=== PATIENT | male | born 1955 | race Caucasian/White ===

== ENCOUNTER → 2023-06-07 14:22 | Outpatient (REF) | payer MEDICARE, BC, SELFPAY | LOC: RAD 14:22 | PROVIDERS: ATTENDING PHYSICIAN Dermatology; FAMILY PHYSICIAN Family Medicine | DX: R06.00 Dyspnea, unspecified (principal) | CPT/HCPCS: 71046 ==

== ENCOUNTER → 2023-09-23 12:53 | Outpatient (REF) | payer MEDICARE, BC, SELFPAY | LOC: RCS 12:53 | PROVIDERS: ATTENDING PHYSICIAN Family Medicine | DX: R01.1 Cardiac murmur, unspecified (principal) | CPT/HCPCS: 93306 ==

== ENCOUNTER 2024-04-08 17:56 | Inpatient (IN) | payer MEDICARE, BC, SELFPAY ==
[2024-04-08] VITALS (14 sets, daily range): BP systolic 113–146; BP diastolic 54–103; BMI 28.1; BMI 27.3
[2024-04-08] MEDS: NSS 1000 IV ×2 (12:16→21:40)
[2024-04-08 12:27] LABS: Hematocrit 49.1 % (39.0-52.0); Hemoglobin 17.2 g/dL (13.0-18.0); Mean Corpuscular Hgb 32.3 pg (27.0-31.0); Mean Corpuscular Volume 92.1 fL (80.0-94.0); Mean Platelet Volume 11.3 fL (7.4-10.4); Platelet Count 170 10^3/uL (130-400); Red Blood Cell Count 5.33 10^6/uL (4.70-6.10); Red Cell Dist. Width 13.4 % (11.5-14.5); White Blood Cell Count 17.1 10^3/uL (4.8-10.8)
[2024-04-08 12:30] LABS: ALT (SGPT) 56 U/L (0-50); AST (SGOT) 57 U/L (17-59); Albumin 4.8 g/dl (3.5-5.0); Alkaline Phosphatase 90 U/L (38-126); Blood Urea Nitrogen 39 mg/dl (9-20); Carbon Dioxide 18 mmol/L (22-30); Chloride 103 mmol/L (98-107); Estimated Creatinine Clearance 54 ml/min; Glucose 147 mg/dl (70-99); Magnesium 1.8 mg/dl (1.6-2.3); Potassium 4.3 mmol/L (3.5-5.1); Sodium 137 mmol/L (135-145); Total Bilirubin 4.4 mg/dl (0.2-1.3); Total Protein 7.3 g/dl (6.3-8.2); eGFR 47.23
--- NOTE | 2024-04-08 12:35 | ED.GENMED ---
History of Present Illness
General
Chief Complaint: Abdominal Symptoms
Time Seen by Provider: 04/08/24 11:47
History of Present Illness
History of Present Illness:
Patient is a 68-year-old male with history of hypertension, hyperlipidemia, CLL on oral immunotherapy presenting to the emergency department with 1 day of nausea vomiting diarrhea. Patient states that he has had multiple episodes of nonbloody
vomiting and diarrhea. He feels extremely dehydrated. Occasionally will have lower abdominal pain. Denies any fevers or chills. No lightheadedness or dizziness. He denies any alcohol use but does state that he used to drink heavily. No drug
use. He denies any chest pain or shortness of breath. No problems with his heart rate in the past. No history of arrhythmia.
Past History
Past History
ED Past Medical History: None
ED Past Surgical History: None
Phy Exam
Physical Exam
Physical Exam:
GENERAL: in no acute distress
HEENT: normocephalic, extraocular movements intact, dry oral mucosa
NECK: normal inspection
RESPIRATORY: no respiratory distress, clear to auscultation bilaterally
CARDIOVASCULAR: Tachycardic rate in the 150s
ABDOMEN/: soft, non-distended, non-tender to palpation, no rebound or guarding
EXTREMITIES: non-tender, no edema/swelling
NEUROLOGIC: awake and alert, moves all extremities
SKIN: warm
Course
Orders/Labs/Results
Orders:
Orders
04/08/24
Electrocardiogram (*1) Stat
Reason for Study: Chest Pain
Comment: DONE NO ORDER ENTERED
04/08/24 11:35
EKG [Electrocardiogram (*1)] Urgent
Reason for Study: Tachycardia
EKG- Treatment ONCE
04/08/24 11:55
0.9% Sodium Chloride 1000 ml [Nss] 1,000 ml IV BOLUS
04/08/24 12:04
Complete Blood Count/With Diff Urgent
Comprehensive Metabolic Panel Urgent
Direct Bilirubin Urgent
Comment: ADD ON
Magnesium Urgent
04/08/24 12:33
Magnesium Sulfate 2 Gram/50 ml [Magnesium Sulfate] 2 gram in 50 ml IV NOW
04/08/24 12:34
Add On- LAB Urgent
Tests Added?: direct bilirubin
04/08/24 12:35
CT Abd/pelvis W Iv Cont Urgent
Comment:
Reason For Exam: llq abd pain
04/08/24 14:28
Urinalysis Reflex To Culture Urgent
Date Specimen was Collected: 04/08/24
Time Specimen was Collected: 13:55
Norovirus by PCR Urgent
MOIZ Source: Feces/Stool
Specimen Description:
Date Specimen was Collected: 04/08/24
Time Specimen was Collected: 14:02
Stool Culture Urgent
MOIZ Source: Feces/Stool
Specimen Description:
Date Specimen was Collected: 04/08/24
Time Specimen was Collected: 14:02
04/08/24 14:46
Diltiazem 125 mg/125 ml Nss [Cardizem] 125 mg in 125 ml IV NOW
Initial dose in mg/hr, then titrate:: 5
Titrate to keep:: Heart rate 80-100 bpm
Titrate by mg/hr:: 5 mg/hr
Frequency of titrations (minutes):: 15
Maximum dose in mg/hr:: 15
Diltiazem HCl [Cardizem] 15 mg IV NOW STA
Abnormal Lab Results
04/08/24 04/08/24
12:04 14:28
WBC 17.1 H 10^3/uL
(4.8-10.8)
MCH 32.3 H pg
(27.0-31.0)
MPV 11.3 H fL
(7.4-10.4)
Abs Immat Gran (auto) 0.1 H 10^3/uL
(0-0.05)
Absolute Neuts (auto) 9.6 H 10^3/uL
(1.4-6.5)
Absolute Lymphs (auto) 6.3 H 10^3/uL
(1.2-3.4)
Absolute Monos (auto) 1.0 H 10^3/uL
(0.1-0.6)
Carbon Dioxide 18 L mmol/L
(22-30)
BUN 39 H mg/dl
(9-20)
Creatinine 1.6 H mg/dL
(0.7-1.3)
Glucose 147 H mg/dl
(70-99)
Total Bilirubin 4.4 H mg/dl
(0.2-1.3)
Direct Bilirubin 0.8 H mg/dl
(0.0-0.4)
ALT 56 H U/L
(0-50)
Urine Ketones Trace A
(Negative)
Urine Bilirubin 1+ A
(Negative)
04/08/24 12:04
04/08/24 12:04
Vital Signs
Initial and Last Documented VS:
Initial Vital Signs
Temp Pulse Resp BP Pulse Ox
99.4 F 153 16 146/100 99
04/08/24 11:33 04/08/24 11:33 04/08/24 11:33 04/08/24 11:33 04/08/24 11:33
Last Documented Vital Signs
Temp Pulse Resp BP Pulse Ox
99.4 F 103 22 134/73 97
04/08/24 11:33 04/08/24 15:45 04/08/24 15:45 04/08/24 15:00 04/08/24 15:45
MDM/Problems Addressed
Differential Diagnosis Includes:
Patient is a 68-year-old man presenting to the emergency department 1 day nausea vomiting diarrhea. Vitals are notable for heart rate in the 150s. Per my interpretation the monitor he remains in the 150s but will go down to the 130s
intermittently. On exam he is dry. Concern for viral gastroenteritis. EKG obtained prior for evaluation per my interpretation is possible atrial flutter with a 2-1 block. Of note patient did have initial EKG that showed heart rate in the 150s
which appeared like atrial flutter however computer was reading as STEMI so I did repeat the EKG. During his evaluation patient continued to deny any chest pain or shortness of breath. My suspicion for ACS is extremely low given patient's clinical
symptoms. However he is receiving fluids and his heart rate does go down to the 130s intermittently could be sinus tach as patient is severely dehydrated. Will continue to give him IV fluids. Will give him magnesium as well. If his heart rate
does not respond to the fluids we will start him on diltiazem for atrial flutter with a 2-1 block. Blood work per my interpretation does show an acute kidney injury likely from dehydration. He does have leukocytosis. Will obtain CT scan with the
abdominal pain and leukocytosis. He also has elevated total bilirubin. Will add on direct bilirubin.
*Critical Care Note
Total Time (30-74mins, 75-104mins- exclusive of procedures): 45
comment:
Critical care statement: A total of 45 minutes of critical care time was provided for this patient. This includes management of unstable vital signs, evaluation of the patient at bedside, reviewing the patient's pertinent medical records, ordering
and reviewing studies, arranging urgent treatment with development of a management plan, evaluating patient's response to treatment, frequent reassessment, and discussion with consultants. This time was separate from time utilized to perform the
aforementioned documented procedures.
Update Note
Update Note:
Direct bilirubin is unremarkable. On reevaluation patient has received 2 L IV fluids as well as magnesium and heart rate remains in the 150s with an occasional decrease to the 130s. Decision was made to start diltiazem bolus and drip
On reevaluation he is on the drip at 10 and heart rate has decreased to the low 100s. Does appear that he is is in atrial fibrillation on the monitor per my interpretation. Patient will need admission for further monitoring and evaluation. CT
scan pending at this time.
ED Attending Note
-
Portions of this chart may have been created with voice recognition software.� Occasional wrong word or��sound alike� substitutions may have occurred due to the inherent limitations of voice recognition software.
Discharge Plan
Departure
Patient Disposition: Admit
Date of Disposition: 04/08/24
Time of Disposition: 16:09
Presentation/result/management discussed w/ accepting MD/DO: Hospitalist
Discharge Problem:
Atrial arrhythmia, Gastroenteritis
Prescriptions:
No Action
omeprazole 20 MG capsule,delayed release(DR/EC)
20 mg PO DAILY
metoprolol succinate 50 mg Capsule,Sprinkle,Er 24hr
50 mg PO DAILY
Saccharomyces boulardii [Florastor] 250 mg Capsule
500 mg PO DAILY
cholecalciferol (vitamin D3) [Vitamin D3] 50 mcg (2,000 unit) Tablet
50 mcg PO DAILY
atorvastatin 20 mg Tablet
20 mg PO DAILY
mupirocin 2 % ointment
1 applic intranasal BID Qty: 1 0RF
Rx Instructions:
Has previously.
docusate sodium 100 mg Capsule
100 mg PO BID Qty: 30 0RF
tamsulosin 0.4 mg Capsule
0.4 mg PO DAILY Qty: 7 0RF
Rx Instructions:
Take daily for 1 week for urinary retention prevention.
HOLD if systolic blood pressure <100.
lidocaine [Aspercreme (lidocaine)] 4 % Adhesive Patch,Medicated
2 patch topical DAILY Qty: 30 0RF
Rx Instructions:
Over the counter. 12 hours on, 12 hours off.
Apply to sides of L hip. DO NOT place over incision.
gabapentin 100 mg Capsule
200 mg PO TID Qty: 30 0RF
sennosides [senna] 8.6 mg Tablet
17.2 mg PO BID Qty: 30 0RF
oxycodone 5 mg tablet
10 mg PO Q6H PRN (Reason: severe pain) Qty: 26 0RF
Rx Instructions:
Home medication.
Take 2 tab every 6 hours as needed for severe pain (pain not controlled by Tramadol).
tramadol 50 mg tablet
50 mg PO Q6H PRN (Reason: mild-moderate pain) Qty: 35 0RF
Rx Instructions:
1 tab for mild pain, 2 if moderate pain.
Dx hip revision. Ongoing therapy.
aspirin 325 mg Tablet
325 mg PO DAILY Qty: 30 0RF
Rx Instructions:
Take daily x4 weeks for blood clot prevention.
amlodipine 5 mg Tablet
5 mg PO DAILY Qty: 1 0RF
Rx Instructions:
HOLD if systolic blood pressure <130 while on post-surgical narcotics.
acetaminophen [Tylenol Extra Strength] 500 mg tablet
1,000 mg PO Q6H Qty: 30 0RF
Rx Instructions:
DO NOT exceed >4000 mg daily.
lisinopril 10 mg Tablet
10 mg PO DAILY Qty: 1 0RF
Rx Instructions:
HOLD if systolic blood pressure <130 while on post-surgical narcotics.
cephalexin 500 mg capsule
500 mg PO BID Qty: 30 0RF
Rx Instructions:
Prescribed by Dr. Garcia.
Referrals:
Kalyan Amaya MD [Family Provider] -
Interventions
Interventions:
*Risk Screen - Suicide Last Done: 04/08/24 11:33
*General Assessment Last Done: 04/08/24 12:17
*Neglect/Abuse Screening Last Done: 04/08/24 11:33
ED- Fall Risk Assessment Last Done: 04/08/24 12:23
*ED COVID-19 Vaccine History Last Done: 04/08/24 12:17
GE-Obyjib-Zqokjdlsog Assessment Last Done: 04/08/24 12:23
Discharge Date and Time
Print Language: MAURITIAN
[2024-04-08 13:25] LABS: % Basophils 0.5 % (0-2); % Eosinophils 0.1 % (0-6); % Immature Granulocytes 0.4 % (0-0.5); % Lymphocytes 36.8 % (20.5-51.1); % Monocytes 5.8 % (1.7-9.3); % Neutrophils 56.4 % (42.2-75.2); Absolute Basophils 0.1 10^3/uL (0-0.2); Absolute Immature Granulocytes 0.1 10^3/uL (0-0.05); Absolute Lymphocytes 6.3 10^3/uL (1.2-3.4); Absolute Neutrophils 9.6 10^3/uL (1.4-6.5); Nucleated Red Blood Cells % 0 % (-)
[2024-04-08 13:29] LABS: Direct Bilirubin 0.8 mg/dl (0.0-0.4)
[2024-04-08] MEDS: MAGNESIUM SULFATE 50 IV (13:30)
[2024-04-08 14:43] LABS: Urine Albumin Trace (Neg - Trace); Urine Bilirubin 1+ (Negative); Urine Character Clear (Clear); Urine Color Yellow; Urine Glucose Negative (Negative); Urine Ketone Trace (Negative); Urine Leukocyte Negative (Negative); Urine Nitrite Negative (Negative); Urine Occult Blood Negative (Negative); Urine Specific Gravity 1.025 (<1.030); Urine Urobilinogen Negative (Neg - 1+)
[2024-04-08] MEDS: CARDIZEM 125 IV (14:57)
[2024-04-08] MEDS: CARDIZEM 15 MG IV (14:57)
--- NOTE | 2024-04-08 16:54 | HPS.HSE ---
Family Physician
-
Family Physician: Kalyan Amaya
Chief Complaint
-
vomiting/diarrhea
History of Present Illness
68-year-old male past medical history of hypertension, hyperlipidemia, CLL on oral immunotherapy, presenting with 1 day of multiple episodes of nausea and vomiting and watery diarrhea. He occasionally has lower abdominal pain. Denies fevers or
chills. Denies lightheadedness or dizziness. Denies alcohol use but used to drink heavily. Denies chest pain or shortness of breath.
He smokes 1 pack of cigarettes per day. He used to drink alcohol significantly in the past but no longer.
Medical History
Past Medical History
Past Medical History: Reports Other (hypertension, hyperlipidemia, CLL on oral immunotherapy)
Past Surgical History: Reports None
Social History
Tobacco: Smoker
Alcohol: Former
Drug: None
Family History
Family History: Not pertinent
Allergies / Home Medications
Allergies reflects when Allergies were last updated in [employer].
Home Medications with original date entered in [employer]
Allergy/Medication List:
Allergies
Allergy/AdvReac Type Severity Reaction Status Date / Time
No Known Allergies Allergy Verified 04/08/24 11:33
Home Medications
omeprazole 20 mg capsule,delayed release 20 mg PO DAILY 03/04/17
metoprolol succinate 50 mg capsule sprinkle, ext. release 24 hr 50 mg PO DAILY 03/12/22
Saccharomyces boulardii 250 mg capsule (Florastor) 500 mg PO DAILY 05/22/22
atorvastatin 20 mg tablet 20 mg PO DAILY 05/22/22
cholecalciferol (vitamin D3) 50 mcg (2,000 unit) tablet (Vitamin D3) 50 mcg PO DAILY 05/22/22
mupirocin 2 % topical ointment 1 applic intranasal BID #1 tube 05/22/22
acetaminophen 500 mg tablet (Tylenol Extra Strength) 1,000 mg (2 x 500 mg) PO Q6H #30 tabs 06/02/22
amlodipine 5 mg tablet 5 mg PO DAILY #1 tab 06/02/22
aspirin 325 mg tablet 325 mg PO DAILY #30 tabs 06/02/22
docusate sodium 100 mg capsule 100 mg PO BID #30 caps 06/02/22
gabapentin 100 mg capsule 200 mg (2 x 100 mg) PO TID #30 caps 06/02/22
lidocaine 4 % topical patch (Aspercreme (lidocaine)) 2 patch topical DAILY #30 ea 06/02/22
lisinopril 10 mg tablet 10 mg PO DAILY #1 tab 06/02/22
oxycodone 5 mg tablet 10 mg (2 x 5 mg) PO Q6H PRN severe pain #26 tabs 06/02/22
sennosides 8.6 mg tablet (senna) 17.2 mg (2 x 8.6 mg) PO BID #30 tabs 06/02/22
tamsulosin 0.4 mg capsule 0.4 mg PO DAILY #7 caps 06/02/22
tramadol 50 mg tablet 50 mg PO Q6H PRN mild-moderate pain #35 tabs 06/02/22
cephalexin 500 mg capsule 500 mg PO BID #30 caps 06/03/22
Review of Systems
-
History Source: Patient
A 12 point ROS was completed and negative except as noted: Yes
Constitutional: Reports No Symptoms
EENT: Reports No Symptoms
Respiratory: Reports No Symptoms
Cardiac: Reports No Symptoms
Abdomen/GI: Reports See HPI
: Reports No Symptoms
Musculoskeletal: Reports No Symptoms
Skin: Reports No Symptoms
Neurological: Reports No Symptoms
Endocrine: Reports No Symptoms
Hematologic/Lymphatic: Reports No Symptoms
Psych: Reports No Symptoms
Physical Exam
Vital Signs
Vital Signs
Temp Pulse Resp BP Pulse Ox
99.4 F 103 22 134/73 97
04/08/24 11:33 04/08/24 15:45 04/08/24 15:45 04/08/24 15:00 04/08/24 15:45
Physical Exam
General: Well Developed, Well Nourished and No Apparent Distress
HEENT: NormoCephalic, Moist mucous membranes and Atraumatic
Respiratory: Clear
Cardiac: S1/S2 and Regular Rhythm; No Murmur or Rub
GI: Soft, Non Tender, Non Distended and Normal Bowel Sounds; No Organomegaly
Rectal: Deferred by Provider
Musculoskeletal: No Clubbing, No Cyanosis and No Edema
Skin: No Rash
Neuro: Nonfocal/grossly intact
Laboratory Results
-
04/08/24 12:04
04/08/24 12:04
Laboratory Results
Total Bilirubin 4.4 mg/dl (0.2-1.3) H 04/08/24 12:04
AST 57 U/L (17-59) 04/08/24 12:04
ALT 56 U/L (0-50) H 04/08/24 12:04
Alkaline Phosphatase 90 U/L (38-126) 04/08/24 12:04
Data Reviewed
-
Lab Data: Labs Reviewed by me
Old Records: Reviewed
Impression/Plan
-
IMPRESSION:
PLAN:
# Acute viral gastroenteritis
-CT abdomen pelvis pending
-IV fluids
-Check stool culture, norovirus
-Zofran
-N.p.o. with sips of clears
# New onset atrial fibrillation with RVR
-[id number] score of 2
-Cardizem drip
-Start Eliquis
-Check echo
-Check TSH
-Cardiology consulted
# Acute kidney injury secondary to prerenal losses
-Creatinine 1.6
-IV fluids
-Hold lisinopril
History of CLL on oral immunotherapy
-On calquence
-Plan to start new treatment next month
Essential hypertension
-Hold lisinopril
Hyperlipidemia
-Continue statin
Active smoker
Former alcohol user
Full code
DVT prophylaxis�Eliquis
N.p.o.
[2024-04-08] MEDS: ELIQUIS 5 MG PO (18:52)
[2024-04-09] MEDS: CARDIZEM 125 IV ×2 (01:25→08:18)
[2024-04-09 03:12] VITALS: BP 127/74
[2024-04-09] MEDS: NSS 1000 IV ×3 (06:00→22:11)
[2024-04-09 06:20] LABS: % Basophils 0.7 % (0-2); % Eosinophils 0.9 % (0-6); % Immature Granulocytes 0.4 % (0-0.5); % Lymphocytes 30.6 % (20.5-51.1); % Monocytes 8.9 % (1.7-9.3); % Neutrophils 58.5 % (42.2-75.2); ALT (SGPT) 58 U/L (0-50); AST (SGOT) 60 U/L (17-59); Absolute Basophils 0.1 10^3/uL (0-0.2); Absolute Eosinophils 0.1 10^3/uL (0-0.7); Absolute Immature Granulocytes 0.1 10^3/uL (0-0.05); Absolute Lymphocytes 3.6 10^3/uL (1.2-3.4); Absolute Monocytes 1.1 10^3/uL (0.1-0.6); Absolute Neutrophils 6.9 10^3/uL (1.4-6.5); Albumin 3.8 g/dl (3.5-5.0); Alkaline Phosphatase 74 U/L (38-126); Blood Urea Nitrogen 33 mg/dl (9-20); Calcium 9.1 mg/dl (8.4-10.2); Carbon Dioxide 20 mmol/L (22-30); Chloride 108 mmol/L (98-107); Estimated Creatinine Clearance 62 ml/min; Glucose 107 mg/dl (70-99); Hematocrit 42.7 % (39.0-52.0); Hemoglobin 14.5 g/dL (13.0-18.0); Mean Corpuscular Hgb 32.1 pg (27.0-31.0); Mean Corpuscular Volume 94.5 fL (80.0-94.0); Nucleated Red Blood Cells % 0 % (-); Potassium 4.2 mmol/L (3.5-5.1); Red Blood Cell Count 4.52 10^6/uL (4.70-6.10); Red Cell Dist. Width 13.4 % (11.5-14.5); Sodium 137 mmol/L (135-145); Total Bilirubin 3.2 mg/dl (0.2-1.3); Total Protein 6.1 g/dl (6.3-8.2); White Blood Cell Count 11.7 10^3/uL (4.8-10.8); eGFR 55.43
[2024-04-09 06:47] LABS: TSH Reflex To Free T4 2.19 uIU/ml (0.47-4.68)
[2024-04-09 07:15] VITALS: BP 127/81
[2024-04-09 07:45] LABS: Lipase 70 U/L (23-300)
[2024-04-09] MEDS: LIPITOR 40 MG PO (07:49)
[2024-04-09] MEDS: ELIQUIS PO (07:52)
--- NOTE | 2024-04-09 08:25 | W.PN.HOSP.TC ---
Addendum entered and electronically signed by Tobi Cardenas MD 04/09/24 12:08:
#Mild thrombocytopenia - not consistent with HIT, also patient on Eliquis and did not receive heparin product
cont monitoring
Original Note:
Today's Communication/Plan
-
see PN
Assessment / Plan
Assessment / Plan
68yo M with PMHx of L hip prosthetic joint infection in 2021, CLL came with 24h of frequent wattery non-bloody stools, abdominal dyscomfort and nausea with vomiting, gradually subsided on the second day of admission. Found Enteritis on CT that
caused CHELA and new onset of Afib with RVR
#New onset Afib with RVR
most likely 2/2 dehydration
IVF
Rate control and bridge to oral cardizem (no Hx of CHF)
Cardio consult
Echo
Eliquis started (need cost by CM)
#CHELA
baseline CR 1.1
IVF and follow Cr
#Enteritis
#Non-bloody wattery diarrhea
#Nausea/vomiting
#Diverticulosis w/o diverticulitis
Norovirus neg
Stool Cx
pending
Antiemetics
Chck stool for c.diff
Advance diet as GI symptoms improved
Lipase WNL
#small b/l inguinal hernia
asymptomatic
monitor
#PAncreatic psudocyst
#Pancreatic cystic lesions with PMHx of pancreatitis
#1.5 cm exophytic mass arising off the posterior lower pole the left kidney
Kidney mass at the place of previous cyst
MRI abd/pelvis with/without contrast upon resolution of CHELA, most likely outpatient
#Hx of L hip prosthetic joint infection
#CLL
cont home meds when acute problem resolves
#Chronic indirect bilirubinemia
#Mild recurrent transaminitis
improving
monitor LFT
GI as outpatient
DVT ppx on Eliquis
Full code
I have spent at least 59min reviewing chart, test results, communication with patient and family and direct patient care
Anticipated Discharge: 24 - 48 hours
Subjective/Interval History
-
Date of Service: April 09, 2024
Objective Data
-
Labs:
Laboratory Results
04/09/24
05:27
WBC 11.7 H
Hgb 14.5
Hct 42.7
Plt Count Pending
Sodium 137
Potassium 4.2
Chloride 108 H
Carbon Dioxide 20 L
BUN 33 H
Creatinine 1.4 H
Glucose 107 H
Calcium 9.1
Total Bilirubin 3.2 H
AST 60 H
ALT 58 H
Alkaline Phosphatase 74
Vital Signs:
Vital Signs
Temp Pulse Resp BP Pulse Ox
98.4 F 78 18 127/81 97
04/09/24 07:15 04/09/24 07:15 04/09/24 07:15 04/09/24 07:15 04/09/24 07:15
I&O
04/08/24 04/09/24 04/10/24
06:59 06:59 06:59
Intake Total 1310 / 1310
Balance 1310 / 1310
Review of Systems
-
History Source: Patient
All other systems: Reviewed and negative
Abdomen/GI: Reports Diarrhea
Physical Exam
-
General: Well Developed, Well Nourished and No Apparent Distress
Cardiac: Irregular Rhythm; Negative Tachycardic
GI: Soft, Nontender and Nondistended
Neuro: Awake, Alert, Oriented and AO x 3
Psych: Calm
[2024-04-09] MEDS: CARDIZEM CD 180 MG PO (08:26)
[2024-04-09 08:40] LABS: Mean Platelet Volume 11.4 fL (7.4-10.4); Platelet Count 104 10^3/uL (130-400)
[2024-04-09] MEDS: NON-FORMULARY ITEM 100 MG PO (09:06)
--- NOTE | 2024-04-09 10:48 | PTCARENOTE ---
Patient cdiff and norovirus negative, placed on standard precautions. Cardizem gtt infusing at 10 ml/hr per MD order.
[2024-04-09 11:10] VITALS: BP 146/67
--- NOTE | 2024-04-09 11:16 | CM ---
CM met with pt bedside
Pt resides with his spouse in a 2SH with 3STE
Full flight to 2nd floor
Pt is indep without any ADs at baseline, drives+
Has a SPC, WW and crutches from prior injuries for use if needed
Denies financial insecurities
PCP- Kalyan Rich
Rx- [facility]
CM consult for Eliquis pricing 5Mg BID
Conference call with spouse who provided Rx plan info
Call to [facility] and closed on weekend
Will need to follow up on Wed for pricing
Dr Cardenas aware
Per spouse, pt has met out of pocket max and in rx catastrophic coverage through end of year
Will need to invest coverage come new year
[facility] Rx Plan ([phone] p)
ID# [id number]
Discharge Disposition- home, likely no needs, needs Eliquis pricing
[2024-04-09] MEDS: NICODERM TRANSDERMAL 21 MG TRANSDERM (14:21)
[2024-04-09 15:10] VITALS: BP 132/78
--- NOTE | 2024-04-09 16:16 | PTCARENOTE ---
HR in 70s aflutter on tele monitor; cardizem gtt put on hold per MD order, cardio made aware. Patient with B/L hand tremors, nicotine patch ordered per MD and applied to LUE. Patient NPO at midnight for ECHO and potential cardioversion in AM per
cardio. Patient with no concerns at this time, still with bouts of diarrhea but denies abdominal pain and nausea, tolerating low residue diet.
--- NOTE | 2024-04-09 17:01 | CON.CAR ---
Consultation
Consultation Request
Requesting Provider: Elle
Performing Provider: Krishan
Reason for Consultation: AFL
Medical History
-
Chief Complaint: N/V/D
History of Present Illness:
Patient is a 68-year-old male with a past medical history significant for hypertension, hyperlipidemia, CLL on oral immunotherapy, osteoarthritis with prior hip infection, pancreatic cyst, tobacco use disorder (1 pack/day), alcohol use disorder who
initially presented with abdominal discomfort nausea, vomiting, watery diarrhea. Patient found to be in atrial flutter likely typical. Initial heart rate elevated reporting palpitations. Following initiation of diltiazem, patient reported
improvement in symptoms and resolution of palpitations. Patient denies any chest pain, near-syncope, syncope, PND, orthopnea, edema, or weakness. He reported palpitations, nausea, vomiting, diarrhea, abdominal pain. No significant family history.
Social history as previously noted.
Past Medical History
Past Medical History: Other (See HPI)
Past Surgical History: Other (Joint surgery with infection)
Social History
Tobacco: Smoker
Alcohol: Other (Reported history of heavy alcohol use)
Drug: None
Personal:
Living: With Family
Family History
Family History: Reviewed & Not Pertinent
Allergies / Home Medications
Allergy/AdvReac Type Severity Reaction Status Date / Time
No Known Allergies Allergy Verified 04/08/24 11:33
�Medication �Instructions �Recorded �Confirmed �Type
Saccharomyces boulardii 250 mg 500 mg PO DAILY 05/22/22 04/08/24 History
capsule (Florastor)
cholecalciferol (vitamin D3) 50 50 mcg PO DAILY 05/22/22 04/08/24 History
mcg (2,000 unit) tablet (Vitamin
D3)
acalabrutinib 100 mg capsule 100 mg PO DAILY 04/08/24 04/08/24 History
(Calquence)
atorvastatin 40 mg tablet 40 mg PO DAILY 04/08/24 04/08/24 History
lisinopril 20 mg tablet 20 mg PO DAILY 04/08/24 04/08/24 History
Review of Systems
-
History Source: Patient and Family
All other systems: Negative unless noted
Constitutional: No Symptoms
EENT: No Symptoms
Respiratory: No Symptoms
Cardiac: Palpitations
Abdomen/GI: Abdominal Pain, Nausea, Vomiting and Diarrhea
: No Symptoms
Musculoskeletal: No Symptoms
Skin: No Symptoms
Neurological: No Symptoms
Endocrine: No Symptoms
Hematologic/Lymphatic: No Symptoms
Physical Exam
Vital Signs
Temp Pulse Resp BP Pulse Ox
98.2 F 75 18 132/78 98
04/09/24 15:10 04/09/24 15:10 04/09/24 15:10 04/09/24 15:10 04/09/24 15:10
Physical exam:
GENERAL: no acute distress
EYE: sclera anicteric
NECK: Supple, no JVD, no carotid bruit appreciated
ENT: normal nose, moist mucosal membranes
CARDIAC: Irregularly irregular, +S1/S2, no murmur, rubs, or gallops
CHEST/PULMONARY: Normal effort, clear breath sounds
ABDOMEN: Soft, without focal tenderness, obese, mild distention
NEUROLOGICAL: Alert and oriented x3
SKIN: Warm and dry, no rash
PSYCH: Normal and appropriate interaction.
Lab Results
04/09/24 05:27
04/09/24 05:27
Impression / Plan
-
PCP: Kalyan Amaya
Cardiology: Kalyan Salinas (last seen)
TTE 09/23/2023: Upper normal LV size, EF 55%, MAC, mild to moderate MR, aortic sclerosis without stenosis
.
Assessment:
Atrial flutter, variable AV block, symptomatic
� [id number]: 2 (hypertension, age). Started on Eliquis 5 mg twice daily for stroke risk reduction
� Rate control with diltiazem drip, oral diltiazem; plan to transition off drip and remain on oral
� No prior rate or rhythm control strategies
Acute viral gastroenteritis, improving
� Nausea, vomiting, diarrhea
� Associated dehydration
� Still reporting diarrhea, no reported nausea or vomiting at this time
CHELA, improving
Hypertension, stable
Dyslipidemia, on statin
CLL on immunotherapy
� Emerita comp review of medication,Calquence, reported possible <5% AF/AFL ADR
Pancreatic pseudocyst
History of pancreatitis
History of left prosthetic joint infection
Tobacco use disorder
History of alcohol use disorder
Plan:
� Eliquis 5 mg twice daily for stroke risk reduction in the setting of acute tachyarrhythmia. Patient's atrial flutter likely in the setting of acute viral gastroenteritis along with significant risk factors associated with AF/AFL
� N.p.o. after midnight for tentative MATEUS/DCCV for hoahaoism of sinus rhythm
� Wean Cardizem drip as tolerated ultimately plan for oral rate control strategy
� Continue to treat underlying illness including gastroenteritis, CHELA, dehydration
� Discussed at great length with patient importance of complete tobacco cessation
� Encouraged patient to remain off alcohol
� Replete electrolytes goal potassium greater than 4, magnesium greater than 2
� Discussed with patient, family, nursing
Data Reviewed
-
EKG: Tracing Personally Visualized and interpreted
Radiology: Report Reviewed by me
CT Scan: Report Reviewed by me
Medical Tests (Nuc Med, Echo etc): Report Reviewed by me
Labs: Labs Reviewed by me
Old Records: Reviewed
[2024-04-09 19:22] VITALS: BP 142/88
[2024-04-09] MEDS: ELIQUIS 5 MG PO (21:05)
[2024-04-09 23:20] VITALS: BP 130/64
[2024-04-10 03:22] VITALS: BP 125/74
[2024-04-10 07:20] VITALS: BP 147/102
--- NOTE | 2024-04-10 07:30 | PTCARENOTE ---
Patient's HR in 130s-140s aflutter on monitor this AM, patient states no concerns/complaints. This RN communicated with Dr. Nickerson of cardiology, stated to give PO 180 mg Cardizem as scheduled. Patient NPO for MATEUS and cardioversion this AM.
[2024-04-10] MEDS: CARDIZEM CD 180 MG PO (07:53)
[2024-04-10 07:54] LABS: % Basophils 0.9 % (0-2); % Eosinophils 1.7 % (0-6); % Immature Granulocytes 0.4 % (0-0.5); % Lymphocytes 33.7 % (20.5-51.1); % Monocytes 9.7 % (1.7-9.3); % Neutrophils 53.6 % (42.2-75.2); Absolute Basophils 0.1 10^3/uL (0-0.2); Absolute Eosinophils 0.1 10^3/uL (0-0.7); Absolute Lymphocytes 2.8 10^3/uL (1.2-3.4); Absolute Monocytes 0.8 10^3/uL (0.1-0.6); Absolute Neutrophils 4.5 10^3/uL (1.4-6.5); Hematocrit 41.2 % (39.0-52.0); Hemoglobin 13.8 g/dL (13.0-18.0); Mean Corp Hgb Conc. 33.5 g/dL (33.0-37.0); Mean Corpuscular Hgb 32.2 pg (27.0-31.0); Mean Platelet Volume 11.6 fL (7.4-10.4); Nucleated Red Blood Cells % 0 % (-); Platelet Count 98 10^3/uL (130-400); Red Blood Cell Count 4.29 10^6/uL (4.70-6.10); Red Cell Dist. Width 13.5 % (11.5-14.5); White Blood Cell Count 8.4 10^3/uL (4.8-10.8)
[2024-04-10] MEDS: NSS 1000 IV (07:54)
[2024-04-10] MEDS: NON-FORMULARY ITEM 100 MG PO (07:54)
[2024-04-10] MEDS: NICODERM TRANSDERMAL 21 MG TRANSDERM (07:54)
[2024-04-10] MEDS: LIPITOR 40 MG PO (07:54)
[2024-04-10] MEDS: ELIQUIS 5 MG PO (07:54)
[2024-04-10 08:20] LABS: ALT (SGPT) 62 U/L (0-50); AST (SGOT) 58 U/L (17-59); Albumin 3.7 g/dl (3.5-5.0); Alkaline Phosphatase 58 U/L (38-126); Blood Urea Nitrogen 24 mg/dl (9-20); Calcium 8.9 mg/dl (8.4-10.2); Carbon Dioxide 19 mmol/L (22-30); Chloride 111 mmol/L (98-107); Estimated Creatinine Clearance 72 ml/min; Glucose 102 mg/dl (70-99); Potassium 4.6 mmol/L (3.5-5.1); Sodium 138 mmol/L (135-145); Total Bilirubin 3.1 mg/dl (0.2-1.3); Total Protein 5.8 g/dl (6.3-8.2); eGFR > 60.00
--- NOTE | 2024-04-10 10:13 | CM ---
Reviewed the chart note. Received consult for cost of Eliquis 5mg bid. Per [facility], $0/month. Patient for tentative MATEUS/DCCV today. CM continues to be available to patient/family and is monitoring medical plan for needs at discharge.
Plan: Discharge to home with no anticipated needs.
--- NOTE | 2024-04-10 10:35 | W.PN.CARDCBS ---
Addendum entered and electronically signed by Stu Jones DO 04/11/24 17:35:
.
Impression:
Typical atrial flutter
Original Note:
Today's Communication / Plan
-
successful mateus/cv to sinus
Cont Eliquis and Cardizem
outpt cardiac follow up
Immunotherapy stopped as per hematology and primary service.
Impression / Plan
-
.
PCP: Kalyan Amaya
Cardiology: Kalyan Salinas, 20 yrs ago per pt
.
Impression:
Atrial flutter, variable AV block, symptomatic
Acute viral gastroenteritis, improving
CHELA, improving
Hypertension, stable
Dyslipidemia, on statin
CLL on immunotherapy, Calquence
Pancreatic pseudocyst
History of pancreatitis
History of left prosthetic joint infection
Tobacco use disorder
History of alcohol use disorder
TTE 09/23/2023: Upper normal LV size, EF 55%, MAC, mild to moderate MR, aortic sclerosis without stenosis
Plan:
Discussed MATEUS/cv and he was agreeable.
MATEUS: EF is preserved with mild to mod eccentric anteriorly directed jet
Cont Cardizem for rate control
Pt is being taken off Calquence as per his social science research assistant. Primary service discussed with hematology
Outpt follow up with Dr Krishan GORDON for PAFib.
Appreciate hospitalist input
Will update family
Progress Note - Precipitator Operator
Subjective
Date of Service: April 10, 2024
Pt seen and examined. No complaints. No chest pain or shortness of breath.
Objective
Labs:
04/10/24 07:21
04/10/24 07:21
Labs
Hgb 13.8 g/dL (13.0-18.0) 04/10/24 07:21
Hct 41.2 % (39.0-52.0) 04/10/24 07:21
Plt Count 98 10^3/uL (130-400) L 04/10/24 07:21
Sodium 138 mmol/L (135-145) 04/10/24 07:21
Potassium 4.6 mmol/L (3.5-5.1) 04/10/24 07:21
BUN 24 mg/dl (9-20) H 04/10/24 07:21
Creatinine 1.2 mg/dL (0.7-1.3) 04/10/24 07:21
Glucose 102 mg/dl (70-99) H 04/10/24 07:21
Vital Signs and I&O:
Vital Signs
Temp Pulse Resp BP Pulse Ox
98.5 F 147 16 147/102 96
04/10/24 07:20 04/10/24 07:53 04/10/24 07:20 04/10/24 07:53 04/10/24 08:29
Vital Signs
Temp Pulse Resp BP Pulse Ox
98.5 F 147 16 147/102 96
04/10/24 07:20 04/10/24 07:53 04/10/24 07:20 04/10/24 07:53 04/10/24 08:29
Intake & Output
04/08/24 04/09/24 04/10/24 04/11/24
06:59 06:59 06:59 06:59
Intake Total 1310 / 1310 4460 / 4460
Balance 1310 / 1310 4460 / 4460
Physical Exam
Physical Exam
General: No acute distress, AAOX3
Neck: Negative JVD
Heart: Irregularly irregular, Negative S3 positive S1/S2, Negative S4, No murmur
Lungs: CTA b/l, negative wheezes/rales/rhonchi
Abd: Positive BS, NT/ND, neg rebound/rigidity/guarding
Ext: Negative cyanosis/clubbing/edema
Neuro: nonfocal
--- NOTE | 2024-04-10 11:30 | PTCARENOTE ---
Patient to pathology lab technician for MATEUS/cardioversion.
--- NOTE | 2024-04-10 12:02 | W.PN.HOSP.TC ---
Today's Communication/Plan
-
MATEUS CV
Assessment / Plan
Assessment / Plan
68yo M with PMHx of L hip prosthetic joint infection in 2021, CLL came with 24h of frequent wattery non-bloody stools, abdominal dyscomfort and nausea with vomiting, gradually subsided on the second day of admission. Found Enteritis on CT that
caused CHELA and new onset of Afib with RVR
68-year-old male presented with abdominal discomfort nausea vomiting and watery diarrhea was found to have atrial flutter
CT abdomen and pelvis-enteritis involving the small bowel in the left lower abdomen and upper pelvis including mesenteric edema. Small amount of free fluid in the both upper quadrants adjacent to the liver and spleen. 2 small cystic focus within
the head of pancreas possible pseudocyst. Neoplasm also possible. MRI/MRCP advised.. 1.5 cm exophytic mass arising of the lower pole of the left kidney slightly larger than MRI of 2021. MRI recommended.
# Acute gastroenteritis-likely viral-likely norovirus even though viral testing is negative
Secondary dehydration from this
Patient is tolerating a diet had 3 meals yesterday. Diarrhea improved stool is softer now. No vomiting
# CHELA secondary to above-hold lisinopril. Creatinine better
# Atrial flutter with variable block-symptomatic
Continue Cardizem, Eliquis
TSH-normal
Cardiology consulted
For MATEUS cardioversion today-04/10/2024
# Elevated LFTs-likely secondary to viral infection-improving
# Thrombocytopenia-likely secondary to viral infection-needs to be followed as outpatient
# Hypertension-hold lisinopril
# Hyperlipidemia-continue statin
# CLL on immunotherapy on Calquence
# 1.5 cm exophytic mass arising from the lower pole of the left kidney-MRI as outpatient
# History of pancreatitis and pancreatic pseudocyst-again seen this admission. Patient needs to follow-up with Dr. Ellison as outpatient and also to get MRI/MRCP
# Smoldering myeloma-Per chart
# Ortega's esophagus/GERD / peptic ulcer disease-add PPI
# Diverticulosis
# Fatty liver
# History of C. difficile
# History of alcohol use disorder-not now
# Smoking-smoking cessation counseling
# DVT prophylaxis-Eliquis
# Full code
Discussed with nursing
Discussed with cardiology
Patient states that he is leaving the hospital regardless whether he is discharged or not
Anticipated Discharge: Within 24 hours
Subjective/Interval History
-
Date of Service: April 10, 2024
Objective Data
-
Labs:
Laboratory Results
04/10/24
07:21
WBC 8.4
Hgb 13.8
Hct 41.2
Plt Count 98 L
Sodium 138
Potassium 4.6
Chloride 111 H
Carbon Dioxide 19 L
BUN 24 H
Creatinine 1.2
Glucose 102 H
Calcium 8.9
Total Bilirubin 3.1 H
AST 58
ALT 62 H
Alkaline Phosphatase 58
Vital Signs:
Vital Signs
Temp Pulse Resp BP Pulse Ox
98.5 F 147 16 147/102 96
04/10/24 07:20 04/10/24 07:53 04/10/24 07:20 04/10/24 07:53 04/10/24 08:29
I&O
04/09/24 04/10/24 04/11/24
06:59 06:59 06:59
Intake Total 1310 / 1310 4460 / 4460
Balance 1310 / 1310 4460 / 4460
--- NOTE | 2024-04-10 12:10 | W.PN.UPDATE ---
Addendum entered and electronically signed by Can Snider MD 04/10/24 15:29:
Discussed with cardiology. Successful cardioversion. Patient can be discharged on Eliquis and Cardizem
Prescription for CBC given
Total discharge coordination time more than 35 minutes
Original Note:
Update Note
Progress Note Update
Called Dr Josh Lance ' office
Pt had concerns if he can take immunotherapy with Eliquis
Spoke to a nurse
Then to dr. Lance
He said it is Ok to stop Calquence and put pt on Eliquis
He will start another therapy in Apr.
His platelet count has not been an issue in the past.
Reviewed today's labs with him
Will cancel or hematology consult here
Patient updated re this. His has sent a message via portal as well.
Cardiology also updated
total time spent today over 55 min
--- NOTE | 2024-04-10 14:36 | CM ---
Reviewed the chart notes and spoke with the patient and his spouse at the bedside. IMM reviewed and placed on chart. CM continues to be available to patient/family and is monitoring medical plan for needs at discharge.
Plan: Discharge to home when medically stable. No additional needs identified at this time.
--- NOTE | 2024-04-10 15:32 | W.DS.TRANS ---
Addendum entered and electronically signed by Can Snider MD 04/11/24 08:01:
Dictation- [id number]
Original Note:
DC Summary - Glove Turner
-
Discharge Instructions:
Discharge Diagnosis/Procedures Atrial fibrillation
Dehydration
Acute kidney injury
Enteritis
Diverticulosis
Pancreatic pseudocyst
1.5 cm kidney mass
Thrombocytopenia ( low platelets)
Diet As tolerated
Activity As tolerated
Driving Restrictions As prior to admission
Blood Work CBC 2-3 days. Then in one month . Liver
function test in 1 month
Instructions:
Stand-Alone Forms:
Changes to Home Medications: Yes
Discharge Medications:
DC Medications w/original date entered in [email or web address]
Saccharomyces boulardii 250 mg capsule (Florastor) 500 mg (2 x 250 mg) PO DAILY Supplement #0 caps 04/10/24
apixaban 5 mg tablet (Eliquis) 5 mg PO BID Arrhythmia #60 tabs 04/10/24
atorvastatin 40 mg tablet 40 mg PO DAILY High cholesterol #0 tabs 04/10/24
cholecalciferol (vitamin D3) 50 mcg (2,000 unit) tablet (Vitamin D3) 50 mcg PO DAILY Supplement #0 tabs 04/10/24
diltiazem HCl 180 mg capsule,extended release 24 hr 180 mg PO DAILY Arrhythmia #30 caps 04/10/24
nicotine 21 mg/24 hr daily transdermal patch 21 mg transdermal DAILY Smoking cessation #0 ea 04/10/24
Home Medication Changes
Lisinopril and Calquence stopped
Nicotine, Cardizem and Eliquis are new
Pending Results: No
[2024-04-10 16:00] VITALS: BP 137/96
--- NOTE | 2024-04-10 16:23 | PTCARENOTE ---
Patient discharged home s/p cardioversion and MATEUS. This RN reviewed discharge instructions with patient and patient's spouse, both verbalized understanding. This RN provided patient back with home med bottle of Calquence, patient understands he is
to stop taking medication. IV and tele pack removed by this RN. Patient dressed and gathered belongings in room with assistance of spouse, taken home by spouse. Patient taken down to [facility] via staff escort and wheelchair.
--- NOTE | 2024-04-11 09:14 | PN.CDI ---
CDI
- -
CDI:
Physician Documentation Request
Admit Date: 04/08/24 17:56
Dear Cardiology,
Please review the following and provide your response in the progress notes.
Clinical Indicators:
- Patient admit with viral gastroenteritis and found in atrial flutter
- 04/10 Cardiology 'Atrial flutter, variable AV block, symptomatic'
- 04/08 EKG with atrial flutter - rate 296 bpm
- 04/10 MATEUS for atrial flutter with cardioversion performed
If possible, please provide further specificity regarding atrial flutter, such as:
Typical Atrial Flutter - Type I: Classic or common atrial flutter, Rate is 240-340 beats/min. Usually responds to atrial pacing.
Atypical Atrial Flutter - Type II: Less common and more unstable. Rate is 340-440 beats/min. Less responsive to atrial pacing.
Other - please specify
Use of terms such as suspected, likely, concern for, or probable (associated with a specific diagnosis that is being evaluated, monitored, or treated as if it exists) are acceptable and can be coded in the inpatient setting, when documented at the
time of discharge.
Thank you,
Candace Swift RN
CDI Specialist
Please use your independent medical judgment in providing your response.
== END 2024-04-10 16:33 | disposition home or self-care (01) | DRG 392 ==
LOC: 2 NORTH 17:56
PROVIDERS: Internal Medicine; Nuclear Medicine Nuclear Cardiology; ADMITTING PHYSICIAN Hospitalist; ATTENDING PHYSICIAN Hospitalist; CONSULT PHYSICIAN Internal Medicine Cardiovascular Disease; EMERGENCY PHYSICIAN Student in an Organized Health Care Education/Training Program; FAMILY PHYSICIAN Family Medicine
PROC: B24BZZ4 Ultrasonography of Heart with Aorta, Transesophageal (ICD-10-PCS; 2024-04-10)
PROC: 5A2204Z Restoration of Cardiac Rhythm, Single (ICD-10-PCS; 2024-04-10)
DX: A08.11 Acute gastroenteropathy due to Norwalk agent (principal); C91.10 Chronic lymphocytic leukemia of B-cell type not having achieved remission; N17.9 Acute kidney failure, unspecified; K86.3 Pseudocyst of pancreas; I48.3 Typical atrial flutter; I44.30 Unspecified atrioventricular block; E86.0 Dehydration; I10 Essential (primary) hypertension; E78.5 Hyperlipidemia, unspecified; Z79.69 Long term (current) use of other immunomodulators and immunosuppressants; F17.210 Nicotine dependence, cigarettes, uncomplicated; F10.11 Alcohol abuse, in remission; I34.0 Nonrheumatic mitral (valve) insufficiency; I25.10 Atherosclerotic heart disease of native coronary artery without angina pectoris; I48.91 Unspecified atrial fibrillation; Z79.899 Other long term (current) drug therapy; Z79.82 Long term (current) use of aspirin; N28.89 Other specified disorders of kidney and ureter; D69.59 Other secondary thrombocytopenia
CPT/HCPCS: 74177; 80053; 81003; 82248; 83690; 83735; 84443; 85025; 87045; 87046; 87324; 87427; 87449; 87798; 92960; 93005; 93312; 93320; 93325; 96361; 96365; 96366; 96367; 99291; Q9967

== ENCOUNTER → 2024-04-15 07:32 | Outpatient (REF) | payer MEDICARE, BC, SELFPAY ==
[2024-04-15 08:14] LABS: % Basophils 0.7 % (0-2); % Eosinophils 2.7 % (0-6); % Lymphocytes 28.6 % (20.5-51.1); % Monocytes 12.2 % (1.7-9.3); % Neutrophils 53.8 % (42.2-75.2); Absolute Basophils 0.1 10^3/uL (0-0.2); Absolute Eosinophils 0.3 10^3/uL (0-0.7); Absolute Immature Granulocytes 0.2 10^3/uL (0-0.05); Absolute Lymphocytes 2.9 10^3/uL (1.2-3.4); Absolute Monocytes 1.2 10^3/uL (0.1-0.6); Absolute Neutrophils 5.4 10^3/uL (1.4-6.5); Hematocrit 41.1 % (39.0-52.0); Hemoglobin 14.4 g/dL (13.0-18.0); Mean Corpuscular Hgb 32.5 pg (27.0-31.0); Mean Corpuscular Volume 92.8 fL (80.0-94.0); Mean Platelet Volume 11.8 fL (7.4-10.4); Nucleated Red Blood Cells % 0 % (-); Platelet Count 120 10^3/uL (130-400); Red Blood Cell Count 4.43 10^6/uL (4.70-6.10); Red Cell Dist. Width 13.5 % (11.5-14.5); White Blood Cell Count 10.1 10^3/uL (4.8-10.8)
== END ==
LOC: REG 07:32
PROVIDERS: ATTENDING PHYSICIAN Internal Medicine Cardiovascular Disease; FAMILY PHYSICIAN Family Medicine
DX: D69.6 Thrombocytopenia, unspecified (principal)
CPT/HCPCS: 36415; 85025

== ENCOUNTER → 2024-04-21 11:14 | Outpatient (REF) | payer MEDICARE, BC, SELFPAY | LOC: RAD 11:14 | PROVIDERS: ATTENDING PHYSICIAN Family Medicine | DX: Z87.891 Personal history of nicotine dependence (principal) | CPT/HCPCS: 71271 ==

== ENCOUNTER → 2024-05-16 12:42 | Outpatient (REF) | payer MEDICARE, BC, SELFPAY | LOC: PAVMRI 12:42 | PROVIDERS: ATTENDING PHYSICIAN Specialist; FAMILY PHYSICIAN Family Medicine | DX: K86.2 Cyst of pancreas (principal) | CPT/HCPCS: 74183; A9575 ==

== ENCOUNTER → 2024-06-26 09:03 | Outpatient (REF) | payer MEDICARE, BC, SELFPAY | LOC: RCS 09:03 | PROVIDERS: ATTENDING PHYSICIAN Internal Medicine Cardiovascular Disease; FAMILY PHYSICIAN Family Medicine | DX: I48.92 Unspecified atrial flutter (principal); R06.02 Shortness of breath | CPT/HCPCS: 93306 ==

== ENCOUNTER → 2024-08-07 12:55 | Outpatient (REF) | payer MEDICARE, BC, SELFPAY | LOC: DHSLP 12:55 | PROVIDERS: ATTENDING PHYSICIAN Internal Medicine Cardiovascular Disease | DX: G47.33 Obstructive sleep apnea (adult) (pediatric) (principal) | CPT/HCPCS: 95800 ==

== ENCOUNTER → 2024-09-11 08:40 | Outpatient (REF) | payer MEDICARE, BC, SELFPAY ==
[2024-09-11 10:00] LABS: % Basophils 1.3 % (0-2); % Lymphocytes 7.7 % (20.5-51.1); % Monocytes 13.8 % (1.7-9.3); % Neutrophils 75.2 % (42.2-75.2); Absolute Basophils 0.1 10^3/uL (0-0.2); Absolute Eosinophils 0.1 10^3/uL (0-0.7); Absolute Immature Granulocytes 0.1 10^3/uL (0-0.05); Absolute Lymphocytes 0.7 10^3/uL (1.2-3.4); Absolute Monocytes 1.2 10^3/uL (0.1-0.6); Absolute Neutrophils 6.6 10^3/uL (1.4-6.5); Hematocrit 48.1 % (39.0-52.0); Hemoglobin 16.2 g/dL (13.0-18.0); Mean Corp Hgb Conc. 33.7 g/dL (33.0-37.0); Mean Corpuscular Hgb 32.9 pg (27.0-31.0); Mean Corpuscular Volume 97.8 fL (80.0-94.0); Mean Platelet Volume 11.6 fL (7.4-10.4); Nucleated Red Blood Cells % 0 % (-); Platelet Count 175 10^3/uL (130-400); Red Blood Cell Count 4.92 10^6/uL (4.70-6.10); Red Cell Dist. Width 13.8 % (11.5-14.5); White Blood Cell Count 8.8 10^3/uL (4.8-10.8)
[2024-09-11 10:12] LABS: ALT (SGPT) 45 U/L (0-50); AST (SGOT) 41 U/L (17-59); Albumin 4.6 g/dl (3.5-5.0); Alkaline Phosphatase 82 U/L (38-126); Blood Urea Nitrogen 24 mg/dl (9-20); Calcium 9.9 mg/dl (8.4-10.2); Carbon Dioxide 22 mmol/L (22-30); Chloride 109 mmol/L (98-107); Glucose 113 mg/dl (70-99); Magnesium 2.1 mg/dl (1.6-2.3); Sodium 140 mmol/L (135-145); Total Bilirubin 1.9 mg/dl (0.2-1.3); Total Protein 7.1 g/dl (6.3-8.2); eGFR > 60.00
[2024-09-11 10:15] LABS: INR 1.12; PT 14.7 Sec (11.4-14.6)
== END ==
LOC: SDSPAT 08:40
PROVIDERS: ATTENDING PHYSICIAN Internal Medicine Cardiovascular Disease; FAMILY PHYSICIAN Family Medicine
DX: I48.91 Unspecified atrial fibrillation (principal)
CPT/HCPCS: 36415; 75572; 80053; 83735; 85025; 85610; 86850; 86900; 86901; 93005; Q9967

== ENCOUNTER 2024-09-27 06:02 | Day surgery (SDC) | payer MEDICARE, BC, SELFPAY ==
[2024-09-11 09:29] VITALS: BMI 28.7
--- NOTE | 2024-09-11 10:29 | HPS.HSE ---
Family Physician
-
Family Physician: NO INTERVIEW UNKNOWN
Chief Complaint
-
Paroxysmal atrial fibrillation and atrial flutter.
History of Present Illness
The patient is a 68 year old male presenting today for paroxysmal atrial fibrillation and atrial flutter. The patient reports symptoms such as disturbing palpitations, fatigue, and jitteriness all likely secondary to his atrial
arrhythmias. He previously underwent a MATEUS-guided cardioversion in March 2024. A recent event monitor revealed an overall 14% atrial fibrillation burden. He is currently rate controlled without the use of pharmacological therapy. He reports
compliance with Eliquis for oral anticoagulation due to a CHADS-VASc of 2. He notes that his symptoms associated with his atrial arrhythmias greatly interfere with his activities of daily living and overall impact his quality of life. He is
interested in pursuing pulmonary vein isolation and atrial flutter ablation for more definitive arrhythmia management. He denies complaints today such as chest pain, shortness of breath at rest, nausea, vomiting, diarrhea, lightheadedness,
dizziness, sore throat, or fever. He does report a recent upper respiratory infection for which he is finishing an antibiotic. He reports mild nasal congestion and an occasional productive cough of clear to white mucus; otherwise, his symptoms have
reportedly drastically improved.
Medical History
Past Medical History
Past Medical History: Reports Other
Additional Past Medical History:
1. Paroxysmal atrial fibrillation and atrial flutter, status post MATEUS-guided cardioversion 03/2024; pharmacological therapy with Metoprolol Succinate and oral anticoagulation with Eliquis.
2. Hypertension.
3. Hyperlipidemia.
4. Mild valvular disease.
5. Newly diagnosed obstructive sleep apnea, awaiting Pulmonary recommendations.
6. Pulmonary nodules.
7. GERD.
8. Ortega's esophagus.
9. Diverticulosis.
10. Left renal mass, 1.4 cm, likely cyst.
11. Pancreatic pseudocysts.
12. Hepatomegaly.
13. History of alcoholic hepatitis.
14. C diff. colitis 06/2016.
15. Osteoarthritis, status post left total hip arthroplasty, 12/2021.
16. Infection of left total hip prosthesis, status post 2-staged revision.
17. Chronic lymphocytic leukemia, on immunotherapy.
18. Chronic post-nasal drip.
19. Recent upper respiratory infection, improving with Cefuroxime.
20. Hyperbilirubinemia.
21. Current tobacco abuse.
22. History of alcohol abuse.
Past Surgical History: Reports Other
Additional Past Surgical History:
1. MATEUS-guided cardioversion.
1. Two-stage revision of left total hip arthroplasty.
2. Left total hip arthroplasty.
3. Knee arthroscopy.
4. Shoulder arthroscopy.
5. Hemorrhoidectomy.
Social History
Tobacco: Smoker (He is a current 1/2 pack per day cigarette smoker. He is taking active measures to cut back and hopefully quit tobacco altogether in the near future. )
Alcohol: Other (He reports 'occasional' beer and wine drinking; however, he does have a known history of hospitalization requiring ICU admission due to alcoholic withdrawal.)
Personal:
Family History
Family History: Other (The patient lives in a two-story home with his . )
Allergies / Home Medications
Allergy/Medication List:
Home medications:
1. Apixaban 5 mg p.o. twice a day.
2. Ascorbic acid 500 mg p.o. daily.
3. Acyclovir 400 mg p.o. twice a day.
4. Atorvastatin 20 mg p.o. daily.
5. Cholecalciferol 50 mcg p.o. daily.
6. Lisinopril 20 mg p.o. twice a day.
7. Metoprolol Succinate 100 mg p.o. daily.
8. Gazyva 1000 mg IV every 28 days.
9. Florastor 500 mg p.o. daily.
10. Cefuroxime 500 mg p.o. twice a day.
Allergies: No known allergies.
Review of Systems
-
A 12 point ROS was completed and negative except as noted: Yes
Physical Exam
Vital Signs
Blood pressure 126/81. Heart rate 73. Respirations 18. Pulse ox 98% on room air.
Height 6 feet, 2 inches. Weight 101.5 kg. BMI 28.7.
Physical Exam
General: Well Developed, Well Nourished and No Apparent Distress
HEENT: NormoCephalic, Moist mucous membranes, Atraumatic and PERRLA
Respiratory: Clear
Cardiac: Irregular Rhythm
GI: Soft, Non Tender and Non Distended
Musculoskeletal: No Edema and Normal Gait & Station
Skin: Warm and Dry
Neuro: AO x 3 and Nonfocal/grossly intact
Laboratory Results
-
DIAGNOSTIC STUDIES as of 09/11/2024: White blood cell count 8.8. Hemoglobin 16.2. Platelet count 175,000. PT 14.7. INR 1.12. Sodium 140. Potassium 5.0. BUN 24. Creatinine 1.1. Glucose 113. Calcium 9.9. Total bilirubin 1.9. Magnesium 2.1. AST 41. ALT
45. Albumin 4.6. Type and screen A negative.
EKG 09/11/2024: Atrial flutter with variable AV block. Cannot rule out inferior infarct, cited on or before 04/08/2024. Prolonged QT.
Chest CT 09/11/2024: Short segment common vestibule for the left superior and inferior pulmonary veins, fairly commonly seen and considered normal variant. No evidence for left atrial thrombus. Slightly improved subtle/small patchy subpleural
groundglass opacities in the bilateral lower lobes, likely reflecting a waxing/waning low-grade infectious/inflammatory process.
Echocardiogram 06/26/2024: Upper normal left ventricular size. Normal systolic function. No regional wall motion abnormalities are seen. LV ejection fraction is 50-55% by visual assessment. Mild concentric left ventricular hypertrophy. Normal
diastolic function. Normal right ventricular size and function. Dense posterior mitral annular calcification. Mild prolapse of the posterior mitral leaflet was present. Mild, eccentric mitral regurgitation. This may be underestimated due to
acoustic shadowing. Densely thickened non coronary cusp. Aortic sclerosis without stenosis. Trace tricuspid regurgitation. Estimated pulmonary artery pressure of 27 mmHg, assuming a right atrial pressure of 3 mmHg. Minimally increased aorta
measuring 3.8 cm at the sinotubular junction and in the ascending aorta. Aortic arch not well visualized.
Impression/Plan
-
IMPRESSION/PLAN:
1. Paroxysmal atrial fibrillation and atrial flutter: The patient is in need of pulmonary vein isolation and an atrial flutter ablation with Dr. Josse Nickerson on 09/27/2024. The benefits and risks of the procedure have been explained to the patient.
The patient understands these risks and wishes to proceed. He will not be required to undergo a pre-procedural transesophageal echocardiogram as he has been compliant with his home oral anticoagulation. He is aware to continue his Eliquis up until
the night prior to his procedure. He will take no medications the morning of his ablation.
2. Recent upper respiratory infection: The patient reportedly has 3 days left of his Cefuroxime; however, he is noting a significant improvement in his symptoms. He was advised to continue this medication until finished. He is aware to call his
surgeon's office should his symptoms return or worsen prior to his procedure date.
3. Current tobacco abuse: Smoking cessation education was provided to the patient. As stated previously, the patient is taking active measures to quit tobacco use altogether prior to his procedure. He was applauded for his efforts.
[2024-09-27] VITALS (12 sets, daily range): BP systolic 100–157; BP diastolic 64–94; BMI 28.5
--- NOTE | 2024-09-27 07:15 | ITS.CL.ABL ---
Aeronautical Inspector - Ablation
Ablation
Procedure Report:
Primary Care: Dr Kalyan Schneider
Procedure Date: 09/27/2024
Patient History:
Patient is a pleasant 68-year-old male with a past medical history significant for hypertension, hyperlipoidemia, GERD, pancreatic pseudocyst, tobacco use, alcohol use, CLL, atrial fibrillation, atrial flutter.
See H&P for complete details.
Indication:
Symptomatic paroxysmal atrial fibrillation
Symptomatic paroxysmal atrial flutter
Arrhythmia Specific History:
Prior Medical Therapies for Rate and Rhythm Control:
X Beta-xiomara
X Calcium channel-xiomara
[ ] Amiodarone
[ ] Dronederone
[ ] Sotalol
[ ] Flecainide
[ ] Dofetilide
[ ] Options limited by bradycardia
[ ] Options limited by comorbid renal disease
Prior Procedural Therapies for AF/AFL:
X Cardioversion
[ ] Pulmonary Vein Isolation
[ ] Posterior Wall Isolation
[ ] Additional lines (Specify)
[ ] Surgical Marcelino-MAZE or PVI (Specify)
Procedure Performed:
X AF ablation procedure (32829) -- includes LA/CS pacing, trans-septal, 3D mapping, + ICE
[ ] +IV drug (95244)
X +Other Arrhythmia (40307) - typical flutter
X +Other AF Line/ablation (01374) - floor, roof, and posterior wall
Risks and expected recovery has been explained in detail. Alternative options have been explored, and in a shared-decision making fashion we have decided that this was the most appropriate procedure.
Method
NPO status confirmed. Grounding pad applied. Defibrillator pads applied. Continuous surface ECG, pulse oximetry, and blood pressure were monitored. Procedure was performed under general anesthesia, with anesthesia services.
Both groins were clipped, prepped with Chloraprep, and draped in sterile fashion. Time out was called. Local anesthesia administered with bupivacaine. The right femoral vein was accessed for catheter placement, using ultrasound guidance (images
saved to record), micro-puncture needle/wire, and modified seldinger technique. 3 sheaths were placed. The following catheters were used:
[ ] Tacticath SE (D/F Curve) ablation catheter
X Viewflex 9Fr ICE catheter
X Inquiry decapolar 6Fr diagnostic catheter
[ ] CRD Hex 6Fr
[ ] Arctic Front Advance Cryoballoon ([ ]28mm[ ]23mm)
[ ] Achieve Advance mapping catheter ([ ]15mm[ ]20mm)
[ ] FlexCath Contour 10 Fr with PulseSelect PFA Catheter
X Agilis 11.5 Fr Steerable Sheath
X Sphere-9 Ablation catheter
[ ] Advisor HD Grid Mapping Catheter, SE
[ ] Acuson AcuNav 8 Fr ICE catheter
[ ]Other: [ ]
Intracardiac ultrasound (ICE) was carefully advanced into the right atrium to guide sheath placement over a J-wire, catheter placement, guide trans-septal puncture, identify potential complications, identify anatomic structures and ensure proper
contact between ablation catheter and tissue.
Heparin was given to achieve and maintain a target ACT of 300-400 seconds throughout the procedure.
The 8 Kyrgyz short sheath was exchanged for an 11.5 Kyr[place]z steerable Agilis sheath over the wire. Severe 9 was introduced in the right atrium. Three-dimensional electroanatomic mapping was utilized with careful attention to anatomic landmarks,
including the coronary sinus, IVC-RA and SVC-RA junction, tricuspid valve annulus, and region of the His bundle electrogram. Tachycardia (210 ms TCL) was characterized by activation patterns in the CS catheter. Entrainment maneuvers established
cavotricuspid isthmus-dependence. An ablation line was created from the tricuspid annulus to the IVC in the 6:00 position (LESLIE clock/caudal EAM projection). 2 RF lesions were provided distally on the CTI with careful monitoring of impedance, AV
conduction, power, and temperature. The patient's atrial flutter terminated during ablation. Ablation continued (PFA proximal portion of CTI to IVC) until a line was complete from the tricuspid valve annulus to the IVC-RA junction. Clockwise and
counterclockwise trans-isthmus times were determined, and RA activation patterns confirmed bidirectional block.
Next, we turned our attention to the AF Ablation.
Trans-septal access was performed under ICE guidance. The trans-septal puncture was performed with a SafeSept wire through a Brockenbrough needle assembly through the steerable sheath. The wire was visualized as it entered the LSPV and system
advanced under ICE guidance and fluoroscopy into the LA. The Brockenbrough needle assembly, SafeSept wire and sheath dilator were removed under negative pressure. LA pressure was measured and recorded.
ICE and 3D mapping was performed to identify relevant cardiac structures. A careful 3D map was created to assess for regions of low-voltage and abnormal electrogram signals using Sphere-9 catheter. Additional mapping was performed as outlined below.
Prior to ablation, glycopyrrolate was provided. Sphere 9 catheter was advanced into the left atrium. Electroanatomic mapping was performed using the Sphere 9 catheter. Pulmonary vein isolation was performed using pulsed field ablation in a
circumferential manner. Contact was visualized via EAM, ICE, fluoroscopy, and EGM signals. Posterior wall isolation with floor and roof lines were also performed by pulsed field ablation. Following completion of ablation lesions, a post-ablation
voltage/activation map was performed in sinus rhythm. Entrance and exit block were confirmed for each vein and the posterior wall.
Catheter and sheath were removed from the left atrium and post-ablation intracardiac echo evaluation was consistent with pre-ablation with no changes and no pericardial effusion and there is no left atrial thrombus or left ventricle thrombus seen.
Evaluation of CTI ablation line demonstrated persistent bidirectional block. Electrophysiology study was performed; no arrhythmias were induced. Hemostasis was obtained with figure of 8 stitch for each groin and with manual pressure. Protamine was
used for reversal.
Estimated Blood Loss
5 mL
Complications
None
Fluoroscopy: 4.7 minutes; 19.64 mGy; DAP 2.68
LA Pressure: Pre 10 mmHg, post 12 mmHg
Baseline Intervals:
Rhythm: AFL, TCL 210 ms
QRS: 81 ms
Post-Procedure Intervals:
FL: 147 ms
QRS: 97 ms
QT: 347 ms
QTc: 452 ms
A-A: 589 ms
R-R: 589 ms
AVWB: 310 ms
AERP: 600/230 ms
Recommendations
- Bedrest with straight-leg precautions as ordered
- Anticipate same day discharge if patient meeting clinical metrics
- Resume home medications as indicated
- Ok to resume anticoagulation tonight if patient and groin sites stable
- PPI daily for 30 days
- Plan for follow-up in office as scheduled
Josse Nickerson, DO, FACC, FHRS
Clinical Cardiac Director Operations
cc: Dr Kalyan Schneider
[2024-09-27 08:36] LABS: ACT-LR - POC 306 Seconds (116-155)
[2024-09-27 08:52] LABS: ACT-LR - POC 295 Seconds (116-155)
[2024-09-27 09:06] LABS: ACT-LR - POC 339 Seconds (116-155)
[2024-09-27 09:21] LABS: ACT-LR - POC 376 Seconds (116-155)
[2024-09-27 09:38] LABS: ACT-LR - POC 347 Seconds (116-155)
[2024-09-27 09:56] LABS: ACT-LR - POC 398 Seconds (116-155)
[2024-09-27 10:17] LABS: ACT-LR - POC 271 Seconds (116-155)
--- NOTE | 2024-09-27 14:26 | W.PN.UPDATE ---
Update Note
Progress Note Update
Pt see post PFA. Right groin site without ht/bleeding, oob ambulating, urinating without difficulty. Post EKG NSR 90s, no acute changes. Resume eliquis tonight at usual time. Followup at with Dr. Nickerson as scheduled. Home today if groin site/tele
remain stable.
== END 2024-09-27 14:57 | disposition home or self-care (01) ==
LOC: CATH 06:02
PROVIDERS: ATTENDING PHYSICIAN Internal Medicine Cardiovascular Disease; FAMILY PHYSICIAN Family Medicine
DX: I48.0 Paroxysmal atrial fibrillation (principal); I48.3 Typical atrial flutter; C91.10 Chronic lymphocytic leukemia of B-cell type not having achieved remission; I10 Essential (primary) hypertension; E78.5 Hyperlipidemia, unspecified; F17.210 Nicotine dependence, cigarettes, uncomplicated; G47.33 Obstructive sleep apnea (adult) (pediatric); I48.92 Unspecified atrial flutter; M19.90 Unspecified osteoarthritis, unspecified site; Z01.810 Encounter for preprocedural cardiovascular examination; Z79.01 Long term (current) use of anticoagulants; Z79.899 Other long term (current) drug therapy; Z87.19 Personal history of other diseases of the digestive system; Z96.649 Presence of unspecified artificial hip joint; K22.70 Barrett's esophagus without dysplasia; R91.8 Other nonspecific abnormal finding of lung field
CPT/HCPCS: C1733; C1730; C1769; C1766; C1894; 85347; 93005; 93655; 93656; 93657